=== PATIENT | male | born 1955 | race Caucasian/White ===

== ENCOUNTER 2017-10-08 10:44 | Emergency (ER) | payer SELFPAY ==
[~2017-10-08] VITALS: Ht 172.7 cm; Wt 80.0 kg
[~2017-10-08 10:44] MED LIST: TRIMIX
[2017-10-08] MEDS ORDERED: IOHEXOL 350 MG/ML 10 ML VIAL (for RAD DIAG) IVCONTRAST ONE (10:45)
[2017-10-08 10:46] VITALS: BP 124/74; PULSE 98; RESP 14; TEMP 98.4; O2SAT 98
[2017-10-08 11:06] VITALS: BP 174/83; PULSE 99; RESP 16; O2SAT 96
[2017-10-08] MEDS ORDERED: SODIUM CHLOR 0.9% 1000 ML INJ 1,000 ML IV SCH (11:19)
[2017-10-08] MEDS ORDERED: SODIUM CHLORIDE 0.9% FLUSH 10 ML FLUSH IV FLUSH PRN (11:30)
[2017-10-08] MEDS ORDERED: MORPHINE SULFATE 4 MG/ML INJ IV PUSH ONE (11:30)
[2017-10-08] MEDS ORDERED: ONDANSETRON HCL 4 MG/2 ML VIAL IVP ONE (11:30)
--- NOTE | 2017-10-08 11:30 | PD ---
HPI Chief Complaint: Abdominal Pain Time Seen by Provider: 11:13 Travel History International Travel<30 days: No Contact w/Intl Traveler<30days: No Traveled to known affect area: No History of Present Illness HPI 62-year-old male presents to the emergency department for evaluation of lower abdominal pain that has been ongoing for the past 2-3 weeks, but worsening. Patient currently rates the pain 8 out of 10. He denies associated nausea and vomiting, but admits to diarrhea. Patient denies any blood in his stool. He states the pain radiates from the lower abdomen to the back. He reports history of prostate cancer with radical prostatectomy in 2010. Reports no other chronic medical problems and takes no prescribed medications. He denies any other previous surgeries. Patient states he has taken self medicated to try to relieve his symptoms, but does not remember what he took. He states he may take antibiotics, but is unsure. Patient states the diarrhea is intermittent. Severity is moderate. No exacerbating or alleviating factors. PFSH Past Medical History Anxiety: Yes Depression: No Cancer: Yes (PROSTATE) Cardiovascular Problems: No Endocrine: No Genitourinary: Yes Headaches: Yes Immune Disorder: No Musculoskeletal: No Neurologic: Yes Psychiatric: No Reproductive: No Respiratory: No Influenza Vaccination: No Past Surgical History Oral Surgery: Yes (SINUS SX) Other Surgery: Yes (PROSTATECTOMY) Social History Alcohol Use: Yes (4 BEERS/DAY) Tobacco Use: Yes (CHEWING TOBACCO) Substance Use: No (PEPSI 6 A DAY, 1 CUP COFFEE DAY) Allergies-Medications (Allergen,Severity, Reaction): Coded Allergies: No Known Allergies (Verified Adverse Reaction, Unknown, 10/08/17) Reported Meds & Prescriptions Reported Meds & Active Scripts Active No Active Prescriptions or Reported Medications Review of Systems Except as stated in HPI: all other systems reviewed are Neg Physical Exam Narrative GENERAL: Well-nourished, well-developed male patient, afebrile. SKIN: Focused skin assessment warm/dry. HEAD: Normocephalic. Atraumatic EYES: No scleral icterus. No injection or drainage. NECK: Supple, trachea midline. No JVD or lymphadenopathy. CARDIOVASCULAR: Regular rate and rhythm without murmurs, gallops, or rubs. RESPIRATORY: Breath sounds equal bilaterally. No accessory muscle use. Lungs sounds are clear to auscultation. GASTROINTESTINAL: Abdomen soft and nondistended. Patient is tender to the lower abdomen to palpation. MUSCULOSKELETAL: No cyanosis, or edema. BACK: Nontender without obvious deformity. No CVA tenderness. Data Data Last Documented VS Vital Signs Date Time Temp Pulse Resp B/P (MAP) Pulse Ox O2 Delivery O2 Flow Rate FiO2 10/08/17 11:58 79 16 163/80 (107) 95 Room Air 10/08/17 10:46 98.4 Orders Orders Complete Blood Count With Diff (10/08/17 11:19) Comprehensive Metabolic Panel (10/08/17 11:19) Lipase (10/08/17 11:19) Prothrombin Time / Inr (Pt) (10/08/17 11:) Act Partial Throm Time (Ptt) (10/08/17 11:19) Urinalysis - C+S If Indicated (10/08/17 11:) Ct Abd/Pel W Iv Contrast(Rout) (10/08/17 11:19) Iv Access Insert/Monitor (10/08/17 11:19) Ecg Monitoring (10/08/17 11:) Oximetry (10/08/17 11:19) Morphine Inj (Morphine Inj) (10/08/17 11:30) Ondansetron Inj (Zofran Inj) (10/08/17 11:30) Sodium Chlor 0.9% 1000 Ml Inj (Ns 1000 M (10/08/17 11:19) Sodium Chloride 0.9% Flush (Ns Flush) (10/08/17 11:30) Iohexol 350 Inj (Omnipaque 350 Inj) (10/08/17 10:45) Metronidazole (Flagyl) (10/08/17 14:30) Ciprofloxacin (Cipro) (10/08/17 14:30) Labs Laboratory Tests Test 10/08/17 11:23 White Blood Count 11.9 TH/MM3 Red Blood Count 4.46 MIL/MM3 Hemoglobin 13.5 GM/DL Hematocrit 41.5 % Mean Corpuscular Volume 93.1 FL Mean Corpuscular Hemoglobin 30.3 PG Mean Corpuscular Hemoglobin Concent 32.6 % Red Cell Distribution Width 13.5 % Platelet Count 357 TH/MM3 Mean Platelet Volume 8.8 FL Neutrophils (%) (Auto) 77.6 % Lymphocytes (%) (Auto) 12.8 % Monocytes (%) (Auto) 9.1 % Eosinophils (%) (Auto) 0.3 % Basophils (%) (Auto) 0.2 % Neutrophils # (Auto) 9.3 TH/MM3 Lymphocytes # (Auto) 1.5 TH/MM3 Monocytes # (Auto) 1.1 TH/MM3 Eosinophils # (Auto) 0.0 TH/MM3 Basophils # (Auto) 0.0 TH/MM3 CBC Comment DIFF FINAL Differential Comment Prothrombin Time 10.3 SEC Prothromb Time International Ratio 0.9 RATIO Activated Partial Thromboplast Time 30.8 SEC Urine Color YELLOW Urine Turbidity CLEAR Urine pH 6.[address] Specific [place] 1.022 Urine Protein TRACE mg/dL Urine Glucose (UA) NEG mg/dL Urine Ketones NEG mg/dL Urine Occult Blood NEG Urine Nitrite NEG Urine Bilirubin NEG Urine Urobilinogen 2.0 MG/DL Urine Leukocyte Esterase NEG Urine RBC 1 /hpf Urine WBC 1 /hpf Urine Mucus FEW /lpf Microscopic Urinalysis Comment CULT NOT INDICATED Blood Urea Nitrogen 20 MG/DL Creatinine 1.09 MG/DL Random Glucose 80 MG/DL Total Protein 8.3 GM/DL Albumin 3.6 GM/DL Calcium Level 8.9 MG/DL Alkaline Phosphatase 75 U/L Aspartate Amino Transf (AST/SGOT) 22 U/L Alanine Aminotransferase (ALT/SGPT) 26 U/L Total Bilirubin 0.3 MG/DL Sodium Level 140 MEQ/L Potassium Level 3.7 MEQ/L Chloride Level 106 MEQ/L Carbon Dioxide Level 25.3 MEQ/L Anion Gap 9 MEQ/L Estimat Glomerular Filtration Rate 69 ML/MIN Lipase 91 U/L [facility] Medical Decision Making Medical Screen Exam Complete: Yes Emergency Medical Condition: Yes Medical Record Reviewed: Yes Interpretation(s) Last Impressions Abdomen/Pelvis CT 10/08/17 1119 Signed Impressions: Service Date/Time: Tuesday, October 08, 2017 13:27 - CONCLUSION: 1. Marked diverticular disease of the descending and sigmoid colon with findings of an uncomplicated diverticulitis involving the sigmoid. 2. A 2.2 cm apparent cystic structure in the region of the right seminal vesicles. This may represent a seminal vesicle cyst or possibly a small seroma associated with prior prostatectomy. 3. Bridging anterior osteophytes of the SI joints. Santino Enriquez MD Differential Diagnosis Diverticulitis versus appendicitis versus bowel obstruction versus pancreatitis versus UTI versus pyelonephritis versus nephrolithiasis Narrative Course 62-year-old male presents to the emergency department for evaluation of lower abdominal pain for the past 2-3 weeks, but is worsening. IV access established. CBC, CMP, lipase, PTT, PT/INR are ordered and pending. CT abdomen /pelvis with IV contrast is ordered and pending. Patient is given normal saline 1 L IV bolus, morphine 4 mg IV, Zofran 4 mg IV. CBC shows leukocytosis of 11.9. CMP shows no acute abnormality. Lipase is 91. Coags show no acute abnormality. CT abdomen/pelvis shows marked diverticular disease of the descending and sigmoid colon with findings of an uncomplicated diverticulitis involving the sigmoid. A 2.2 cm apparent cystic structure in the region of the right seminal vesicles, this may represent seminal vesicle cyst or possibly a small seroma associate prior prostatectomy. Bridging anterior osteophytes in the SI joints. The patient is given first dose of Flagyl and Cipro the emergency department. He will be given prescriptions for Flagyl and Cipro outpatient. He is instructed to not drink alcohol while on the Flagyl. The patient states that he will not follow with primary care physician, but I did instruct him that I will give him information on the [facility] clinic to follow up outpatient. He is to return here for any acute worsening of symptoms. The patient was discharged in stable condition with instructions, including return instructions and follow up instructions. Diagnosis Primary Impression: Diverticulitis Referrals: [facility] call for appointment Patient Instructions: Diverticulitis (ED), Diverticulitis Diet (ED), General Instructions Additional Instructions: Take antibiotics as directed until gone. Do not drink alcohol while on Flagyl. Take [place] as directed as needed for pain. Caution this can make you drowsy so do not drive after taking. Follow-up with your primary care physician. Return to the emergency department for any acute worsening of symptoms. Med/Other Pt SpecificInfo: Prescription(s) given Scripts Hydrocodone-Acetaminophen ([place]) 5 Mg-325 Mg Tab 1 TAB PO Q6H Y for PAIN, #12 TAB 0 Refills Prov: Nathaly Cooper 10/08/17 Ciprofloxacin (Cipro) 500 Mg Tab 500 MG PO BID for Infection for 10 Days, #20 TAB 0 Refills Prov: Nathaly Cooper 10/08/17 Metronidazole (Flagyl) 500 Mg Tab 500 MG PO TID for Infection for 10 Days, TAB 0 Refills Prov: Nathaly Cooper 10/08/17 Disposition: 01 DISCHARGE HOME Condition: Stable Nathaly Cooper Oct 08, 2017 11:30
[2017-10-08 11:58] VITALS: BP 163/80; PULSE 79; RESP 16; O2SAT 95
[2017-10-08 12:00] LABS: AUTOMATED NEUTROPHIL # 9.3 TH/MM3 (1.8-7.7); BASOPHIL % 0.2 % (0.0-2.0); BLOOD, URINE NEG (NEG); COMMENT (UR) CULT NOT INDICATED; CULTURE IF INDICATED CULT NOT INDICATED; EOSINOPHIL % 0.3 % (0.0-4.0); GLUCOSE,URINE NEG (NEG); HEMATOCRIT 41.5 % (39.0-51.0); HEMO FLAGS DIFF FINAL; KETONE, URINE NEG (NEG); LYMPH % 12.8 % (9.0-44.0); LYMPHOCYTE # 1.5 TH/MM3 (1.0-4.8); MEAN CELL VOLUME 93.1 FL (80.0-100.0); MEAN CORPUSCULAR HEMOGLOBIN 30.3 PG (27.0-34.0); MEAN CORPUSCULAR HGB CONC 32.6 % (32.0-36.0); MONO % 9.1 % (0.0-8.0); MUCUS URINE FEW /lpf (OCC); NEUT % 77.6 % (16.0-70.0); NITRITE,URINE NEG (NEG); PLATELET COUNT 357 TH/MM3 (150-450); RED BLOOD COUNT 4.46 MIL/MM3 (4.50-5.90); RED CELL DISTRIBUTION WIDTH 13.5 % (11.6-17.2); URINE COLOR YELLOW (YELLW/STRAW); WHITE BLOOD COUNT 11.9 TH/MM3 (4.0-11.0)
[2017-10-08 12:10] LABS: APTT (PATIENT) 30.8 SEC (24.3-30.1); INTERNATIONAL NORMALIZED RATIO 0.9 RATIO; PROTHROMBIN TIME - PATIENT 10.3 SEC (9.8-11.6)
[2017-10-08 12:18] LABS: ANION GAP 9 MEQ/L (5-15); AST (GOT) 22 U/L (15-37); BICARBONATE 25.3 MEQ/L (21.0-32.0); BLOOD UREA NITROGEN 20 MG/DL (7-18); CHLORIDE 106 MEQ/L (98-107); GLOMERULAR FILTRATION RATE 69 ML/MIN (>89); POTASSIUM 3.7 MEQ/L (3.5-5.1); SODIUM (NA) 140 MEQ/L (136-145)
[2017-10-08 12:19] LABS: ALT (GPT) 26 U/L (12-78)
[2017-10-08 12:21] LABS: ALKALINE PHOSPHATASE 75 U/L (45-117); TOTAL BILIRUBIN ADULT 0.3 MG/DL (0.2-1.0)
--- NOTE | 2017-10-08 14:02 | RADRPT ---
EXAM DATE/TIME: 10/08/2017 13:27 [facility] COMPARISON: No previous studies available for comparison. INDICATIONS : Lower abdominal pain, diarrhea. IV CONTRAST: 96 cc Omnipaque 350 (iohexol) IV ORAL CONTRAST: No oral contrast ingested. RADIATION DOSE: 14.26 CTDIvol (mGy) MEDICAL HISTORY : Carcinoma, prostate. SURGICAL HISTORY : Prostatectomy. ENCOUNTER: Initial ACUITY: 1 week PAIN SCALE: 3/10 LOCATION: Bilateral lower quadrant TECHNIQUE: Volumetric scanning of the abdomen and pelvis was performed. Using automated exposure control and ad justment of the mA and/or kV according to patient size, radiation dose was kept as low as reasonably achievable to obtain optimal diagnostic quality images. DICOM format image data is available electro nically for review and comparison. FINDINGS: LOWER LUNGS: The visualized lower lungs are clear. LIVER: Homogeneous density without lesion. There is no dilation of the biliary tree. No calcified gallston es. SPLEEN: Normal size without lesion. PANCREAS: Within normal limits. KIDNEYS: Normal in size and shape. There is no mass, stone or hydronephrosis. ADRENAL GLANDS: Within normal limits. VASCULAR: There is no aortic aneurysm. BOWEL/MESENTERY: Marked degenerative disease of the descending and sigmoid colon. There is some pericolonic stranding characteristic of an uncomplicated diverticulitis. ABDOMINAL WALL: Within normal limits. RETROPERITONEUM: There is no lymphadenopathy. BLADDER: No wall thickening or mass. REPRODUCTIVE: Urinary bladder extends down into the prostate fossa characteristic of a reported history of prostate ctomy. There is a 2.2 cm low density area in the expected location of the right seminal vesicles. Thi s may represent a seminal vesicle cyst or old postoperative seroma. INGUINAL: There is no lymphadenopathy or hernia. MUSCULOSKELETAL: Bridging osteophytes anteriorly the SI joints bilaterally. CONCLUSION: 1. Marked diverticular disease of the descending and sigmoid colon with findings of an uncomplicated diverticulitis involving the sigmoid. 2. A 2.2 cm apparent cystic structure in the region of the right seminal vesicles. This may represent a seminal vesicle cyst or possibly a small seroma associated with prior prostatectomy. 3. Bridging anterior osteophytes of the SI joints. Santino Enriquez MD on October 08, 2017 at 13:56 Board Certified Radiologist. This report was verified electronically.
[2017-10-08] MEDS ORDERED: CIPR-9 PO (14:24)
[2017-10-08] MEDS ORDERED: NORC5TAB PO (14:24)
[2017-10-08] MEDS ORDERED: METR-1 PO (14:24)
[2017-10-08] MEDS ORDERED: metroNIDAZOLE 500 MG TAB PO ONE (14:30)
[2017-10-08] MEDS ORDERED: CIPROFLOXACIN 500 MG TAB PO ONE (14:30)
== END 2017-10-08 14:44 | disposition home or self-care (01) ==
LOC: NEPE 10:44
DX: K57.92 Diverticulitis of intestine, part unspecified, without perforation or abscess without bleeding (principal); R19.7 Diarrhea, unspecified; F41.9 Anxiety disorder, unspecified; D72.829 Elevated white blood cell count, unspecified; F17.220 Nicotine dependence, chewing tobacco, uncomplicated; Z85.46 Personal history of malignant neoplasm of prostate
CPT/HCPCS: 74177; 80053; 81001; 83690; 85025; 85610; 85730; 96361; 96374; 96375; 99285; J2270; J2405; J7030; Q9967

== ENCOUNTER 2017-10-24 08:29 | Emergency (ER) | payer SELFPAY ==
[~2017-10-24] VITALS: Ht 172.7 cm; Wt 82.0 kg
[~2017-10-24 08:29] MED LIST changes: +CIPR-9 PO; +METR-1 PO; +NORC5TAB PO; -TRIMIX
[2017-10-24 08:30] VITALS: BP 194/82; PULSE 80; RESP 14; TEMP 98.5; O2SAT 96
[2017-10-24] MEDS ORDERED: SODIUM CHLOR 0.9% 1000 ML INJ 1,000 ML IV SCH (09:30)
[2017-10-24] MEDS ORDERED: HYDROmorphone HCL PF 1 MG/ML VIAL IVS ONE (09:30)
[2017-10-24] MEDS ORDERED: SODIUM CHLORIDE 0.9% FLUSH 10 ML FLUSH IV FLUSH PRN (09:30)
[2017-10-24] MEDS ORDERED: ONDANSETRON HCL 4 MG/2 ML VIAL IVP ONE (09:30)
--- NOTE | 2017-10-24 09:35 | PD ---
HPI Chief Complaint: Abdominal Pain Time Seen by Provider: 09:30 Travel History International Travel<30 days: No Contact w/Intl Traveler<30days: No Traveled to known affect area: No History of Present Illness HPI 62-year-old male patient with history of diverticulitis diagnosed on the 11th of this month, presents to the ER today because he states that since his evaluation at that time, he has had ongoing lower abdominal pains which she currently measures at a 7 out of 10, ongoing multiple episodes of diarrhea, about 10 times a day. He denies any black stools, fevers, vomiting, blood in the stools, or any other symptoms. He states that it seems to worsen when his bladder is full. Modifying Factors: Worse with bladder full Associated Signs & Symptoms: Lower abdominal pain, ongoing diarrhea Risk Factors: Diverticulitis PFSH Past Medical History Anxiety: Yes Depression: No Cancer: Yes (PROSTATE) Cardiovascular Problems: No Diminished Hearing: No Endocrine: No Genitourinary: Yes Headaches: Yes Immune Disorder: No Musculoskeletal: No Neurologic: Yes Psychiatric: No Reproductive: No Respiratory: No Tetanus Vaccination: Unknown Past Surgical History Oral Surgery: Yes (SINUS SX) Prostatectomy: Yes (2009) Other Surgery: Yes (PROSTATECTOMY) Social History Alcohol Use: Yes (4 BEERS/DAY) Tobacco Use: Yes (CHEWING TOBACCO) Substance Use: No (PEPSI 6 A DAY, 1 CUP COFFEE DAY) Allergies-Medications (Allergen,Severity, Reaction): Coded Allergies: No Known Allergies (Verified Adverse Reaction, Unknown, 10/24/17) Reported Meds & Prescriptions Reported Meds & Active Scripts Active Ibuprofen 600 Mg Tab 600 Mg PO Q6H PRN Flagyl (Metronidazole) 500 Mg Tab 500 Mg PO TID 10 Days Cipro (Ciprofloxacin HCl) 500 Mg Tab 500 Mg PO BID 10 Days Review of Systems Except as stated in HPI: all other systems reviewed are Neg Physical Exam Narrative GENERAL: Well-developed elderly white male patient currently in moderate distress. Awake and oriented 3. SKIN: Focused skin assessment warm/dry. HEAD: Atraumatic. Normocephalic. EYES: Pupils equal and round. No scleral icterus. No injection or drainage. ENT: No nasal bleeding or discharge. Mucous membranes pink and moist. NECK: Trachea midline. No JVD. CARDIOVASCULAR: Regular rate and rhythm. No murmur appreciated. RESPIRATORY: No accessory muscle use. Clear to auscultation. Breath sounds equal bilaterally. GASTROINTESTINAL: Abdomen soft, lower abdominal tenderness without guarding or rebound, nondistended. Hepatic and splenic margins not palpable. MUSCULOSKELETAL: No obvious deformities. No clubbing. No cyanosis. No edema. NEUROLOGICAL: Awake and alert. No obvious cranial nerve deficits. Motor grossly within normal limits. Normal speech. PSYCHIATRIC: Appropriate mood and affect; insight and judgment normal. Data Data Last Documented VS Vital Signs Date Time Temp Pulse Resp B/P (MAP) Pulse Ox O2 Delivery O2 Flow Rate FiO2 10/24/17 09:58 68 14 170/82 (111) 98 Room Air 10/24/17 08:30 98.5 Orders Orders Complete Blood Count With Diff (10/24/17 09:30) Comprehensive Metabolic Panel (10/24/17 09:30) Lipase (10/24/17 09:30) Urinalysis - C+S If Indicated (10/24/17 09:30) Ct Abd/Pel W Iv Contrast(Rout) (10/24/17 09:30) Iv Access Insert/Monitor (10/24/17 09:30) Ecg Monitoring (10/24/17 09:30) Oximetry (10/24/17 09:30) Ondansetron Inj (Zofran Inj) (10/24/17 09:30) Sodium Chlor 0.9% 1000 Ml Inj (Ns 1000 M (10/24/17 09:30) Sodium Chloride 0.9% Flush (Ns Flush) (10/24/17 09:30) Hydromorphone Pf Inj (Dilaudid Pf Inj) (10/24/17 09:30) Iohexol 350 Inj (Omnipaque 350 Inj) (10/24/17 10:50) Ed Discharge Order (10/24/17 12:32) Labs Laboratory Tests Test 10/24/17 09:45 10/24/17 11:35 White Blood Count 8.3 TH/MM3 Red Blood Count 4.46 MIL/MM3 Hemoglobin 13.8 GM/DL Hematocrit 41.7 % Mean Corpuscular Volume 93.5 FL Mean Corpuscular Hemoglobin 30.9 PG Mean Corpuscular Hemoglobin Concent 33.1 % Red Cell Distribution Width 13.4 % Platelet Count 370 TH/MM3 Mean Platelet Volume 8.3 FL Neutrophils (%) (Auto) 74.4 % Lymphocytes (%) (Auto) 17.7 % Monocytes (%) (Auto) 7.0 % Eosinophils (%) (Auto) 0.3 % Basophils (%) (Auto) 0.6 % Neutrophils # (Auto) 6.2 TH/MM3 Lymphocytes # (Auto) 1.5 TH/MM3 Monocytes # (Auto) 0.6 TH/MM3 Eosinophils # (Auto) 0.0 TH/MM3 Basophils # (Auto) 0.0 TH/MM3 CBC Comment DIFF FINAL Differential Comment Blood Urea Nitrogen 15 MG/DL Creatinine 1.01 MG/DL Random Glucose 98 MG/DL Total Protein 8.4 GM/DL Albumin 3.7 GM/DL Calcium Level 9.0 MG/DL Alkaline Phosphatase 65 U/L Aspartate Amino Transf (AST/SGOT) 24 U/L Alanine Aminotransferase (ALT/SGPT) 40 U/L Total Bilirubin 0.6 MG/DL Sodium Level 137 MEQ/L Potassium Level 4.4 MEQ/L Chloride Level 103 MEQ/L Carbon Dioxide Level 26.7 MEQ/L Anion Gap 7 MEQ/L Estimat Glomerular Filtration Rate 75 ML/MIN Lipase 86 U/L Urine Color YELLOW Urine Turbidity CLEAR Urine pH 7.5 Urine Specific [place] 1.029 Urine Protein NEG mg/dL Urine Glucose (UA) NEG mg/dL Urine Ketones TRACE mg/dL Urine Occult Blood NEG Urine Nitrite NEG Urine Bilirubin NEG Urine Urobilinogen LESS THAN 2.0 MG/DL Urine Leukocyte Esterase NEG Urine RBC LESS THAN 1 /hpf Urine WBC LESS THAN 1 /hpf Urine Mucus FEW /lpf Microscopic Urinalysis Comment CULT NOT INDICATED MDM Medical Decision Making Medical Screen Exam Complete: Yes Emergency Medical Condition: Yes Medical Record Reviewed: Yes Interpretation(s) Laboratory Tests Test 10/24/17 09:45 10/24/17 11:35 Red Blood Count 4.46 MIL/MM3 (4.50-5.90) Neutrophils (%) (Auto) 74.4 % (16.0-70.0) Total Protein 8.4 GM/DL (6.4-8.2) Estimat Glomerular Filtration Rate 75 ML/MIN (>89) Urine Ketones TRACE mg/dL (NEG) Urine Mucus FEW /lpf (OCC) Differential Diagnosis Lower abdominal pains, diarrhea: Colitis versus C. difficile diarrhea versus diverticulitis versus diverticular abscess versus other acute intra-abdominal processes versus gastroenteritis Narrative Course Lab work did not show significant signs of leukocytosis or sepsis her left light abnormalities. CAT scan is showing ongoing mild diverticulitis. At this point, my plan would be to treat him with antibiotics and ibuprofen to help with the inflammation. Patient may need further GI follow-up considering his ongoing problems with diverticulitis. There has not been any abscess formation or other acute processes. At this point, my plan would be to release him with follow-up to primary and GI. Return for any worsening in symptoms as needed. The plan has been discussed with him and he states understanding. Diagnosis Primary Impression: Diverticulitis Additional Instructions: Follow-up with GI physician. Return for any worsening in pain, vomiting, and as needed. Take medications as prescribed. Med/Other Pt SpecificInfo: Prescription(s) given Scripts Ibuprofen (Ibuprofen) 600 Mg Tab 600 MG PO Q6H Y for PAIN, #20 TAB 0 Refills Prov: Jaguar Styles MD 10/24/17 Metronidazole (Flagyl) 500 Mg Tab 500 MG PO TID for Infection for 10 Days, TAB 0 Refills Prov: Jaguar Styles MD 10/24/17 Ciprofloxacin (Cipro) 500 Mg Tab 500 MG PO BID for Infection for 10 Days, #20 TAB 0 Refills Prov: Jaguar Styles MD 10/24/17 Disposition: 01 DISCHARGE HOME Condition: Stable Jaguar Styles MD Oct 24, 2017 09:35
[2017-10-24 09:58] VITALS: BP 170/82; PULSE 68; RESP 14; O2SAT 98
[2017-10-24 10:00] LABS: AUTOMATED NEUTROPHIL # 6.2 TH/MM3 (1.8-7.7); BASOPHIL % 0.6 % (0.0-2.0); EOSINOPHIL % 0.3 % (0.0-4.0); HEMATOCRIT 41.7 % (39.0-51.0); HEMO FLAGS DIFF FINAL; LYMPH % 17.7 % (9.0-44.0); LYMPHOCYTE # 1.5 TH/MM3 (1.0-4.8); MEAN CELL VOLUME 93.5 FL (80.0-100.0); MEAN CORPUSCULAR HEMOGLOBIN 30.9 PG (27.0-34.0); MEAN CORPUSCULAR HGB CONC 33.1 % (32.0-36.0); NEUT % 74.4 % (16.0-70.0); PLATELET COUNT 370 TH/MM3 (150-450); RED BLOOD COUNT 4.46 MIL/MM3 (4.50-5.90); RED CELL DISTRIBUTION WIDTH 13.4 % (11.6-17.2); WHITE BLOOD COUNT 8.3 TH/MM3 (4.0-11.0)
[2017-10-24 10:18] LABS: ANION GAP 7 MEQ/L (5-15); AST (GOT) 24 U/L (15-37); BICARBONATE 26.7 MEQ/L (21.0-32.0); BLOOD UREA NITROGEN 15 MG/DL (7-18); CHLORIDE 103 MEQ/L (98-107); GLOMERULAR FILTRATION RATE 75 ML/MIN (>89); POTASSIUM 4.4 MEQ/L (3.5-5.1); SODIUM (NA) 137 MEQ/L (136-145)
[2017-10-24 10:23] LABS: ALKALINE PHOSPHATASE 65 U/L (45-117); ALT (GPT) 40 U/L (12-78); TOTAL BILIRUBIN ADULT 0.6 MG/DL (0.2-1.0)
[2017-10-24] MEDS ORDERED: IOHEXOL 350 MG/ML 10 ML VIAL (for RAD DIAG) IVCONTRAST ONE (10:50)
--- NOTE | 2017-10-24 11:07 | RADRPT ---
EXAM DATE/TIME: 10/24/2017 10:32 [facility] COMPARISON: CT ABDOMEN & PELVIS W CONTRAST, October 08, 2017, 13:27. INDICATIONS : Lower abdomen pain for one month. IV CONTRAST: 71 cc Omnipaque 350 (iohexol) IV ORAL CONTRAST: No oral contrast ingested. RADIATION DOSE: 8.97 CTDIvol (mGy) MEDICAL HISTORY : Carcinoma, prostate. SURGICAL HISTORY : Prostatectomy. ENCOUNTER: Initial ACUITY: 1 month PAIN SCALE: 7/10 LOCATION: Bilateral lower quadrant TECHNIQUE: Volumetric scanning of the abdomen and pelvis was performed. Using automated exposure control and ad justment of the mA and/or kV according to patient size, radiation dose was kept as low as reasonably achievable to obtain optimal diagnostic quality images. DICOM format image data is available electro nically for review and comparison. FINDINGS: Lung base is are clear. There is no pericardial effusion The liver, spleen, pancreas and adrenals unremarkable There is symmetrical renal function There is no left tibial adenopathy Multiple diverticula are seen in sigmoid colon with mild diverticulitis without abscess formation. T here has been mild regression in the interval. There is no free fluid There is no free air CONCLUSION: Progression of the mild diverticulitis sigmoid colon without abscess or free air. Isidro Chester MD FACR on October 24, 2017 at 11:04 Board Certified Radiologist. This report was verified electronically.
[2017-10-24 12:11] LABS: BLOOD, URINE NEG (NEG); COMMENT (UR) CULT NOT INDICATED; CULTURE IF INDICATED CULT NOT INDICATED; GLUCOSE,URINE NEG (NEG); KETONE, URINE TRACE mg/dL (NEG); MUCUS URINE FEW /lpf (OCC); NITRITE,URINE NEG (NEG); PH, URINE 7.5 (5.0-8.5); URINE COLOR YELLOW (YELLW/STRAW)
[2017-10-24] MEDS ORDERED: IBUP-232 PO (12:33)
[2017-10-24] MEDS ORDERED: CIPR-9 PO (12:33)
[2017-10-24] MEDS ORDERED: METR-1 PO (12:33)
[2017-10-24 13:45] VITALS: BP 172/80
== END 2017-10-24 13:54 | disposition home or self-care (01) ==
LOC: NEPC 08:29
DX: K57.92 Diverticulitis of intestine, part unspecified, without perforation or abscess without bleeding (principal); F41.9 Anxiety disorder, unspecified; F17.220 Nicotine dependence, chewing tobacco, uncomplicated
CPT/HCPCS: 74177; 80053; 81001; 83690; 85025; 96361; 96374; 96375; 99285; J1170; J2405; J7030; Q9967